=== PATIENT | female | born 2000 | race Caucasian/White ===

== ENCOUNTER 2021-05-30 18:09 | Emergency (ER) | payer OTHER ==
[~2021-05-30] VITALS: Ht 154.9 cm; Wt 70.0 kg
[2021-05-30 19:01] VITALS: BP 126/79
[2021-05-30 19:59] LABS: BASO # 0.1 x10^3/uL (0.0-0.2); BASO % 1 % (0-3); EOS # 0.6 x10^3/uL (0.0-0.7); EOS % 6 % (0-3); HEMATOCRIT 39.5 % (36.0-47.0); HEMOGLOBIN 13.4 g/dL (12.0-15.5); LYMPH # 2.7 x10^3/uL (1.0-4.8); LYMPH % 27 % (24-48); MEAN CORPUSCULAR HEMOGLOBIN 33 pg (25-35); MEAN CORPUSCULAR HGB CONC 34 g/dL (31-37); MEAN CORPUSCULAR VOLUME 96 fL (79-100); MONO # 1.1 x10^3/uL (0.0-1.1); MONO % 10 % (0-9); NEUT # 5.7 x10^3uL (1.8-7.7); NEUT % 56 % (31-73); PLATELET COUNT 212 x10^3/uL (140-400); RED CELL DISTRIBUTION WIDTH 12.1 % (11.5-14.5); WHITE BLOOD COUNT 10.2 x10^3/uL (4.0-11.0)
[2021-05-30 20:06] LABS: BACTERIA,URINE FEW /HPF (0-FEW); BILIRUBIN,URINE NEG (NEG); CLARITY,URINE CLEAR; COLOR,URINE YELLOW; GLUCOSE,URINE NEG (NEG); NITRITE,URINE NEG (NEG); RBC,URINE 0 /HPF (0-2); SQUAMOUS EPITHELIAL CELL,UR FEW /LPF
--- NOTE | 2021-05-30 20:46 | PHYS DOC ---
Past History Additional Past Medical Histor: BONE TUMOR (LORENE SYKES) Past Surgical History: Other Additional Past Surgical Histo: TUMOR SX (LORENE SYKES) General Adult EDM: Chief Complaint: ABDOMINAL PAIN IN HPI: HPI: Patient is a 20 year old female who presents with heavy vaginal bleeding yesterday and a positive at-home test. She reports associated 4/10 generalized abdominal pain and lightheadedness. Patient reports a few days ago, she had a positive at home urine test. Yesterday, she reports she had vaginal bleeding that filled more than 1 tampon in 1 hour. She has had no vaginal bleeding since that time. Her last known menstrual period was 05/11/2021. She denies prior pregnancies. Patient denies headache, weakness, NVD, dysuria, hematuria. She has no other complaints at this time. (LORENE SYKES) Review of Systems: Review of Systems: Constitutional: Denies fever or chills Respiratory: Denies cough or shortness of breath Cardiovascular: Denies chest pain or edema GI: Denies abdominal pain, nausea, vomiting, bloody stools or diarrhea : See HPI Musculoskeletal: Denies back pain or joint pain Neurologic: See HPI (LORENE SYKES) Allergies: Allergies: Allergies Coded Allergies Type Severity Reaction Last Updated Verified No Known Drug Allergies 05/30/21 No (LORENE SYKES) Physical Exam: PE: Constitutional: Well developed, well nourished, no acute distress, non-toxic appearance. Eyes: PERRLA, EOMI, conjunctiva normal, no discharge. Cardiovascular: Heart rate regular rhythm, no murmur. Lungs & Thorax: Bilateral breath sounds clear to auscultation. Abdomen: Bowel sounds normal, soft, no tenderness, no masses, no pulsatile masses. Neurologic: Alert and oriented x4, no focal deficits noted. (LORENE SYKES) Current Patient Data: Labs: Laboratory Tests Test 05/30/21 19:00 05/30/21 19:13 05/30/21 19:40 Urine Collection Type Unknown Urine Color Yellow Urine Clarity Clear Urine pH 7.0 Urine Specific [place] 1.025 Urine Protein Neg (NEG-TRACE) Urine Glucose (UA) Neg mg/dL (NEG) Urine Ketones (Stick) Neg mg/dL (NEG) Urine Blood Neg (NEG) Urine Nitrite Neg (NEG) Urine Bilirubin Neg (NEG) Urine Urobilinogen Dipstick 1.0 mg/dL (0.2 mg/dL) Urine Leukocyte Esterase Neg (NEG) Urine RBC 0 /HPF (0-2) Urine WBC 1-4 /HPF (0-4) Urine Squamous Epithelial Cells Few /LPF Urine Bacteria Few /HPF (0-FEW) Urine Mucus Slight /LPF POC Urine HCG, Qualitative hcg negative (Negative) White Blood Count 10.2 x10^3/uL (4.0-11.0) Red Blood Count 4.10 x10^6/uL (3.50-5.40) Hemoglobin 13.4 g/dL (12.0-15.5) Hematocrit 39.5 % (36.0-47.0) Mean Corpuscular Volume 96 fL (79-100) Mean Corpuscular Hemoglobin 33 pg (25-35) Mean Corpuscular Hemoglobin Concent 34 g/dL (31-37) Red Cell Distribution Width 12.1 % (11.5-14.5) Platelet Count 212 x10^3/uL (140-400) Neutrophils (%) (Auto) 56 % (31-73) Lymphocytes (%) (Auto) 27 % (24-48) Monocytes (%) (Auto) 10 % (0-9) H Eosinophils (%) (Auto) 6 % (0-3) H Basophils (%) (Auto) 1 % (0-3) Neutrophils # (Auto) 5.7 x10^3uL (1.8-7.7) Lymphocytes # (Auto) 2.7 x10^3/uL (1.0-4.8) Monocytes # (Auto) 1.1 x10^3/uL (0.0-1.1) Eosinophils # (Auto) 0.6 x10^3/uL (0.0-0.7) Basophils # (Auto) 0.1 x10^3/uL (0.0-0.2) Maternal Serum HCG Beta Subunit 2 mIU/mL (0-6) Vital Signs: Vital Signs Date Time Temp Pulse Resp B/P (MAP) Pulse Ox O2 Delivery O2 Flow Rate FiO2 05/30/21 19:01 97.5 87 18 126/79 (95) 100 Room Air (LORENE SYKES) Heart Score: C/O Chest Pain: No (LORENE SYKES) Course & Med Decision Making: Course & Med Decision Making Pertinent Labs and Imaging studies reviewed. (See chart for details) Urine test negative. Patient does request serum beta hCG as a confirmation, as if she were , it may be too early to tell in urine qualitative testing. Work-up also include CBC secondary to patient's reported vaginal bleeding. Patient blood work unremarkable. Serum beta hCG negative. Patient discharged to home with strict return precautions for recurrence of vaginal bleeding and any new symptoms. Patient understands and is agreeable to discharge plan. (LORENE SYKES) Dragon Disclaimer: Dragon Disclaimer: This electronic medical record was generated, in whole or in part, using a voice recognition dictation system. (LORENE SYKES) Departure Departure: Impression: Primary Impression: Nonmenstrual vaginal bleeding Disposition: HOME / SELF CARE / HOMELESS Condition: STABLE Referrals: PCP,NO (PCP) Patient Instructions: Health Maintenance, Females Attending Signature Attending Signature I have reviewed the PA/FOREST TECHNOLOGY PROFESSOR's note and plan of care. I was available for consultation as needed during the patient's visit in the emergency department. I agree with the clinical impression, plan, and disposition. (SHANIKA CADE DO) LORENE SYKES May 30, 2021 20:46 SHANIKA CADE DO May 30, 2021 22:14
== END 2021-05-30 20:50 | disposition home or self-care (01) ==
LOC: ER 18:09
DX: N93.8 Other specified abnormal uterine and vaginal bleeding (principal); R10.84 Generalized abdominal pain; R42 Dizziness and giddiness
CPT/HCPCS: 36415; 81001; 81025; 84702; 85025; 99283

== ENCOUNTER 2021-06-26 01:54 | Emergency (ER) | payer OTHER ==
[~2021-06-26] VITALS: Ht 154.9 cm; Wt 70.0 kg
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
[2021-06-26 02:54] LABS: BARBITURATES NEG (NEG); BENZODIAZEPINES NEG (NEG); CANNABINOIDS NEG (NEG); COCAINE NEG (NEG); METHADONE NEG (NEG); OPIATES NEG (NEG); PHENCYCLIDINE NEG (NEG)
[2021-06-26] MEDS ORDERED: MVI, ADULT NO.4 WITH VIT K 10 ML, THIAMINE INJ 100 MG in IV RINGERS SOLUTION,LACTATED 1... IV ONE (03:00)
[2021-06-26] MEDS ORDERED: IV RINGERS SOLUTION,LACTATED 1,000 ML IV SCH (03:00)
[2021-06-26 03:04] LABS: AMPHETAMINE/METHAMPHETAMINE NEG (NEG)
[2021-06-26 03:06] LABS: BILIRUBIN,URINE NEG (NEG); CLARITY,URINE CLEAR; COLOR,URINE YELLOW; GLUCOSE,URINE NEG (NEG)
[2021-06-26 03:07] LABS: BACTERIA,URINE FEW /HPF (0-FEW); NITRITE,URINE NEG (NEG); RBC,URINE 0 /HPF (0-2); SQUAMOUS EPITHELIAL CELL,UR FEW /LPF; UROBILINOGEN,URINE 0.2 mg/dL (0.2 mg/dL)
[2021-06-26 03:22] LABS: BASO # 0.1 x10^3/uL (0.0-0.2); BASO % 1 % (0-3); EOS # 0.3 x10^3/uL (0.0-0.7); EOS % 3 % (0-3); HEMATOCRIT 42.8 % (36.0-47.0); HEMOGLOBIN 14.7 g/dL (12.0-15.5); LYMPH # 2.6 x10^3/uL (1.0-4.8); LYMPH % 26 % (24-48); MEAN CORPUSCULAR HEMOGLOBIN 33 pg (25-35); MEAN CORPUSCULAR HGB CONC 34 g/dL (31-37); MEAN CORPUSCULAR VOLUME 95 fL (79-100); MONO # 0.9 x10^3/uL (0.0-1.1); MONO % 9 % (0-9); NEUT # 6.1 x10^3uL (1.8-7.7); NEUT % 62 % (31-73); PLATELET COUNT 225 x10^3/uL (140-400); RED CELL DISTRIBUTION WIDTH 12.1 % (11.5-14.5); WHITE BLOOD COUNT 9.9 x10^3/uL (4.0-11.0)
--- NOTE | 2021-06-26 03:36 | EKG ---
[address] [address] Test Date: 2021-06-26 Test Time: 03:10:39 Pat Name: DEISY CAR Department: Room: Gender: F Rock Crusher: : 2000 Requested By: YOLI HERNÁNDEZ Order Number: [id number] Reading MD: Measurements Intervals [place] Rate: 94 P: 50 [place]: 154 QRS: 41 QRSD: 96 T: 29 QT: 330 QTc: 418 Interpretive Statements SINUS RHYTHM NORMAL ECG RI6.02 No previous ECG available for comparison
[2021-06-26 04:18] LABS: CALCIUM 8.1 mg/dL (8.5-10.1); CREATININE 0.8 mg/dL (0.6-1.0); GFR 90.5; MAGNESIUM 2.6 mg/dL (1.8-2.4); POTASSIUM 4.2 mmol/L (3.5-5.1)
--- NOTE | 2021-06-26 06:12 | RAD ---
EXAM: 1. Left femur 2 views. 2. Left knee 4 views. HISTORY: Fall, pain. COMPARISON: None. FINDINGS: No fractures are identified. The joint spaces and alignment of the hip and knee are maintai fabián. There is no joint effusion at the knee. A well-defined lucent lesion within the lateral, posterior aspect of the distal femoral metaphysis is likely a benign tug lesion and measures 19 x 9 mm. IMPRESSION: 1. No fracture. 2. Findings consistent with a benign tug lesion along the posterior, lateral aspect of the distal fem oral metaphysis. Correlate for associated symptoms. Electronically signed by: Saskia Jean-Baptiste MD (06/26/2021 6:10 AM) [id number]
[2021-06-26 09:40] VITALS: BP 108/48
== END 2021-06-26 09:49 | disposition home or self-care (01) ==
LOC: ER 01:54
DX: S80.02XA Contusion of left knee, initial encounter (principal); F10.129 Alcohol abuse with intoxication, unspecified; Y90.8 Blood alcohol level of 240 mg/100 ml or more; W18.39XA Other fall on same level, initial encounter; Y93.89 Activity, other specified; Y92.89 Other specified places as the place of occurrence of the external cause; Y99.8 Other external cause status
CPT/HCPCS: 36415; 73552; 73564; 80048; 80307; 81001; 81025; 83735; 84702; 85025; 87491; 87591; 93005; 96361; 96365; 99285; G0480; J7120

== ENCOUNTER 2021-08-21 18:56 | Emergency (ER) | payer OTHER ==
[~2021-08-21] VITALS: Ht 152.4 cm; Wt 69.5 kg
[2021-08-21 19:05] VITALS: BP 118/78
[2021-08-21] MEDS ORDERED: HYDR-2155 PO (19:20)
[2021-08-21] MEDS ORDERED: AMOX1TAB11 PO (19:20)
--- NOTE | 2021-08-21 19:27 | PHYS DOC ---
Past History Additional Past Medical Histor: BONE TUMOR (JODIE FALL APRN) Past Surgical History: Other Additional Past Surgical Histo: L HIP (JODIE FALL APRN) Alcohol Use: Occasionally (JODIE FALL APRN) General Adult EDM: Chief Complaint: DENTAL PROBLEM HPI: HPI: Patient is a 20-year-old female who presents to the emergency department for swelling to her left lower gums at her third molar site that started 2 hours ago. Patient is also reporting pain to the area that she rates 4 out of 10. No treatment prior to arrival. Patient does have a dentist to follow-up with. Patient denies any fever, difficulty swallowing, nausea, vomiting, facial swelling. (JODIE FALL APRN) Review of Systems: Review of Systems: Constitutional: See HPI HENT: See HPI Respiratory: See HPI GI: See HPI (JODIE FALL APRN) Allergies: Allergies: Allergies Coded Allergies Type Severity Reaction Last Updated Verified No Known Drug Allergies 06/26/21 No (JODIE FALL APRN) Physical Exam: PE: Constitutional: Well developed, well nourished, no acute distress, non-toxic appearance. [] HENT: Normocephalic, atraumatic, bilateral external ears normal, small area of swelling on the gumline at site of the third molar, third molar tooth has not erupted, no erythema noted to gums, no area of fluctuance palpated Dizziness, no phonation changes, no tonsillar enlargement, patient maintaining secretions, oropharynx moist, no oral exudates, nose normal. [] Eyes: PERRL, EOMI, conjunctiva normal, no discharge. [] Neck: Normal range of motion, no tenderness, no submandibular swelling noted, no submandibular discoloration, supple, no stridor. [] Cardiovascular: Normal peripheral perfusion Lungs & Thorax: Normal work of breathing, no tachypnea Abdomen: Soft and flat Skin: Warm, dry, no erythema, no rash. [] Back: Normal range of motion Extremities: No tenderness, no cyanosis, no clubbing, ROM intact, no edema. [] Neurologic: Alert and oriented X 3, normal motor function, normal sensory function, no focal deficits noted. [] Psychologic: Affect normal, judgement normal, mood normal. [] (JODIE FALL APRN) EKG: EKG: [] (JODIE FALL APRN) Radiology/Procedures: Radiology/Procedures: [] (JODIE FALL APRN) Heart Score: C/O Chest Pain: N/A Risk Factors: Risk Factors: DM, Current or recent (<one month) smoker, HTN, HLP, family history of CAD, obesity. Risk Scores: Score 0 - 3: 2.5% MACE over next 6 weeks - Discharge Home Score 4 - 6: 20.3% MACE over next 6 weeks - Admit for Clinical Observation Score 7 - 10: 72.7% MACE over next 6 weeks - Early Invasive Strategies (JODIE FALL APRN) Course & Med Decision Making: Course & Med Decision Making Pertinent Labs and Imaging studies reviewed. (See chart for details) Patient presents to the emergency department for swelling to left lower gumline at the site of her third molar, third molar tooth has not erupted. Patient will be treated for gingival abscess with an antibiotic and she will also be discharged home with pain medication. Patient's vital signs are stable and she is in no acute distress. Advised to follow-up with a dentist. I discussed with patient all findings and diagnostic testing as well as the need to follow-up with PCP for further evaluation and treatment or return to the ER if any new or worsening symptoms. Strict return precautions were also discussed at length. Patient voiced understanding and agreement with the plan. Patient is hemodynamically stable at the time of disposition. (JODIE FALL APRN) Dragon Disclaimer: Dragon Disclaimer: This electronic medical record was generated, in whole or in part, using a voice recognition dictation system. (JODIE FALL APRN) Departure Departure: Impression: Primary Impression: Dental abscess Disposition: 01 HOME / SELF CARE / HOMELESS Condition: GOOD Referrals: SALVADOR PAREDES DO (PCP) Patient Instructions: Dental Abscess Additional Instructions: You are seen in the emergency department today for swelling and pain to your gums. It is possible you are experiencing a dental abscess or gingival abscess this will be treated with an antibiotic. Please start and finish the antibiotic completely. Take ibuprofen or naproxen for mild pain. For severe pain you are being discharged home with a medication called [place] which is hydrocodone and Tylenol combination tablet. Do not take any additional Tylenol with this medication. This medication may cause sedation so do not take when you need to be alert, driving a vehicle or with alcohol. Please follow-up with a dentist immediately. I would advise you to contact them tomorrow to set up a follow-up appointment. Return to the emergency department if you develop high fevers refractory to treatment, difficulty swallowing or secretions, intractable nausea or vomiting, voice changes, facial swelling or any new or worsening concerns. Scripts Hydrocodone Bit/Acetaminophen (HYDROCODONE-APAP 5-325 ) 1 Each Tablet 1 TAB PO PRN Q6HRS PRN for PAIN for 2 Days, #8 TAB 0 Refills Prov: JODIE FALL APRN 08/21/21 Amoxicillin/Potassium Clav (AMOX TR-K CLV 875-125 MG TAB) 1 Each Tablet 1 TAB PO BID for dental abscess for 10 Days, #20 TAB 0 Refills Prov: JODIE FALL APRN 08/21/21 Attending Signature Attending Signature I have participated in the care of this patient and I have reviewed and agree with all pertinent clinical information above including history, exam, and recommendations. (YOLI HERNÁNDEZ MD) Dragon Disclaimer This chart was dictated in whole or in part using Voice Recognition software in a busy, high-work load, and often noisy Emergency Department environment. It may contain unintended and wholly unrecognized errors or omissions. (YOLI HERNÁNDEZ MD) JODIE FALL APRN Aug 21, 2021 19:26 YOLI HERNÁNDEZ MD Aug 22, 2021 20:02
[2021-08-21] MEDS ORDERED: HYDROcodone/APAP 5/325MG 1 TAB TABLET PO ONE (19:30)
[2021-08-21] MEDS ORDERED: AMOXICILLIN/K CLAV 875/125MG TABLET. PO ONE (19:30)
== END 2021-08-21 19:48 | disposition home or self-care (01) ==
LOC: ER 18:56
DX: K04.7 Periapical abscess without sinus (principal)
CPT/HCPCS: 99283

== ENCOUNTER 2021-10-12 03:46 | Emergency (ER) | payer OTHER ==
[~2021-10-12 03:46] MED LIST: AMOX1TAB11 PO; HYDR-2155 PO
[2021-10-12] MEDS ORDERED: ACETAMINOPHEN 500 MG TABLET PO ONE (04:22)
[2021-10-12] MEDS ORDERED: IBUPROFEN 800 MG TABLET. PO ONE (04:22)
[2021-10-12] MEDS ORDERED: diphenhydrAMINE HCL 25 MG CAPSULE PO ONE (04:22)
[2021-10-13] MEDS ORDERED: CEFD300C PO (21:19)
[2021-10-13] MEDS ORDERED: ONDA4TAB12 PO (21:20)
== END 2021-10-12 04:35 | disposition home or self-care (01) ==
LOC: ER 03:46
DX: B34.9 Viral infection, unspecified (principal)
CPT/HCPCS: 99281; 99284

== ENCOUNTER 2021-10-13 19:47 | Emergency (ER) | payer OTHER ==
[~2021-10-13] VITALS: Ht 154.9 cm; Wt 60.4 kg
--- NOTE | 2021-10-13 20:07 | PHYS DOC ---
Past History Additional Past Medical Histor: BONE TUMOR Past Surgical History: Tonsillectomy Additional Past Surgical Histo: left hip; addenoidectomy Alcohol Use: None General Adult EDM: Chief Complaint: FEVER HPI: HPI: Patient is a 20-year-old female who presents to the emergency department for multiple complaints. She is reporting generalized body aches, fatigue, nausea and fevers. Patient reports that her temperature at home was 102.6 degrees. She reports that she was seen in this emergency department yesterday and was told she has a viral illness reports her symptoms are not improving. Patient denies vomiting, diarrhea, coughing, shortness of breath, sick exposures, urinary symptoms, recent travel. She states that she is able to tolerate oral intake. Review of Systems: Review of Systems: Constitutional: see HPI Respiratory: see HPI GI: see HPI :see HPI Musculoskeletal:see HPI Current Medications: Current Meds: Current Medications Medications (Trade) Dose Ordered Sig/Beau Start Time Stop Time Status Last Admin Dose Admin Acetaminophen (Tylenol) 1,000 mg 1X ONCE 10/13/21 20:15 10/13/21 20:16 UNV Ondansetron HCl (Zofran) 4 mg 1X ONCE 10/13/21 20:15 10/13/21 20:16 UNV Sodium Chloride 1,000 ml @ 1,000 mls/hr 1X ONCE 10/13/21 20:15 10/13/21 21:14 UNV Allergies: Allergies: Allergies Coded Allergies Type Severity Reaction Last Updated Verified No Known Drug Allergies 06/26/21 No Physical Exam: PE: Constitutional: Well developed, well nourished, no acute distress, non-toxic appearance. [] HENT: Normocephalic, atraumatic, bilateral external ears normal, oropharynx moist, no oral exudates, nose normal. [] Eyes: PERRL, EOMI, conjunctiva normal, no discharge. [] Neck: Normal range of motion, no tenderness, supple, no stridor. [] Cardiovascular:Heart rate regular rhythm, no murmur [] Lungs & Thorax: Bilateral breath sounds clear to auscultation [] Abdomen: Bowel sounds normal, soft, generalized abdominal tenderness with palpation, no guarding, no rigidity, no masses, no pulsatile masses. [] Skin: Warm, dry, no erythema, no rash. [] Back: No tenderness,normal rom, bilateral CVAT Extremities: No tenderness, no cyanosis, no clubbing, ROM intact, no edema. [] Neurologic: Alert and oriented X 3, normal motor function, normal sensory function, no focal deficits noted. [] Psychologic: Affect normal, judgement normal, mood normal. [] Current Patient Data: Labs: Laboratory Tests Test 10/13/21 19:36 10/13/21 20:10 Bedside Urine HCG, Qualitative hcg negative White Blood Count 13.0 x10^3/uL Red Blood Count 4.38 x10^6/uL Hemoglobin 13.8 g/dL Hematocrit 41.0 % Mean Corpuscular Volume 94 fL Mean Corpuscular Hemoglobin 32 pg Mean Corpuscular Hemoglobin Concent 34 g/dL Red Cell Distribution Width 12.0 % Platelet Count 176 x10^3/uL Neutrophils (%) (Auto) 75 % Lymphocytes (%) (Auto) 10 % Monocytes (%) (Auto) 14 % Eosinophils (%) (Auto) 0 % Basophils (%) (Auto) 1 % Neutrophils # (Auto) 9.7 x10^3uL Lymphocytes # (Auto) 1.3 x10^3/uL Monocytes # (Auto) 1.8 x10^3/uL Eosinophils # (Auto) 0.0 x10^3/uL Basophils # (Auto) 0.1 x10^3/uL Urine Collection Type Clean catch Urine Color Yellow Urine Clarity Clear Urine pH 6.0 Urine Specific [place] 1.025 Urine Protein 30 mg/dl Urine Glucose (UA) Neg mg/dL Urine Ketones (Stick) >=160 mg/dL Urine Blood Mod Urine Nitrite Pos Urine Bilirubin Neg Urine Urobilinogen Dipstick 1.0 mg/dL Urine Leukocyte Esterase Neg Urine RBC 3-5 /HPF Urine WBC 11-20 /HPF Urine Squamous Epithelial Cells Few /LPF Urine Bacteria Mod /HPF Urine Mucus Mod /LPF Sodium Level 134 mmol/L Potassium Level 3.6 mmol/L Chloride Level 98 mmol/L Carbon Dioxide Level 27 mmol/L Anion Gap 9 Blood Urea Nitrogen 8 mg/dL Creatinine 0.9 mg/dL Estimated GFR (Cockcroft-Gault) 79.0 BUN/Creatinine Ratio 9 Glucose Level 96 mg/dL Calcium Level 8.7 mg/dL Total Bilirubin 0.4 mg/dL Aspartate Amino Transf (AST/SGOT) 14 U/L Alanine Aminotransferase (ALT/SGPT) 23 U/L Alkaline Phosphatase 65 U/L Total Protein 7.3 g/dL Albumin 3.2 g/dL Albumin/Globulin Ratio 0.8 Lipase 46 U/L Influenza Type A (Rapid) Negative Influenza Type B (Rapid) Negative SARS-CoV-2 Antigen (Rapid) Negative Current Medications Medications (Trade) Dose Ordered Sig/Beau Route PRN Reason Start Time Stop Time Status Last Admin Dose Admin Sodium Chloride 1,000 ml @ 1,000 mls/hr 1X ONCE IV 10/13/21 20:15 10/13/21 21:14 10/13/21 20:15 Ondansetron HCl (Zofran) 4 mg 1X ONCE IVP 10/13/21 20:15 10/13/21 20:16 DC 10/13/21 20:15 Acetaminophen (Tylenol) 1,000 mg 1X ONCE PO 10/13/21 20:15 10/13/21 20:16 DC 10/13/21 20:15 Vital Signs: Vital Signs Date Time Temp Pulse Resp B/P (MAP) Pulse Ox O2 Delivery O2 Flow Rate FiO2 10/13/21 19:58 100.7 129 20 98 Room Air EKG: EKG: [] Radiology/Procedures: Radiology/Procedures: []PROCEDURE: PORTABLE CHEST 1V Exam: Chest one view INDICATION: Fever, body aches TECHNIQUE: Frontal view of the chest Comparisons: None FINDINGS: The cardiomediastinal silhouette and pulmonary vessels are within normal limits. The lung and pleural spaces are clear. IMPRESSION: No acute cardiopulmonary process. Electronically signed by: Rayne Wade MD (10/13/2021 8:44 PM) [facility] DICTATED AND SIGNED BY: RAYNE WADE MD DATE: 10/13/212042 CC: JODIE FALL APRN; SALVADOR PAREDES DO ~ Heart Score: C/O Chest Pain: N/A Risk Factors: Risk Factors: DM, Current or recent (<one month) smoker, HTN, HLP, family history of CAD, obesity. Risk Scores: Score 0 - 3: 2.5% MACE over next 6 weeks - Discharge Home Score 4 - 6: 20.3% MACE over next 6 weeks - Admit for Clinical Observation Score 7 - 10: 72.7% MACE over next 6 weeks - Early Invasive Strategies Course & Med Decision Making: Course & Med Decision Making Pertinent Labs and Imaging studies reviewed. (See chart for details) Patient presents to the ER for generalized body aches, fatigue, nausea and fever. Work up in ER consists of blood work including lipase, urinalysis and Covid testing. Patient was mildly tachycardic and did have a low-grade fever and she was treated with IV fluids, nausea medication and Tylenol. Following treatment in the emergency department, patient's heart rate has improved to 101 bpm and her fever has gone down to 100.1 checked 20 minutes after tylenol dose. Patient is noted to have leukocytosis with a white blood cell count of 13, unremarkable CMP and nitrate positive urinary tract infection. Negative influenza and Covid testing. Chest x-ray showed no acute findings. Due to patient's CVA tenderness, fevers and nausea and patient will be treated for pyelonephritis. She was given her first dose in the ER today. Patient will also be discharged home with nausea medication she is advised to take Tylenol and ibuprofen at home for her fevers. Patient is able to tolerate oral intake and is not actively vomiting. I discussed with patient all findings and diagnostic testing as well as the need to follow-up with PCP for further evaluation and treatment or return to the ER if any new or worsening symptoms. Strict return precautions were also discussed at length. Patient voiced understanding and agreement with the plan. Patient is hemodynamically stable at the time of disposition. Maria C Disclaimer: Maria C Disclaimer: This electronic medical record was generated, in whole or in part, using a voice recognition dictation system. Departure Departure: Impression: Primary Impression: Pyelonephritis Disposition: HOME / SELF CARE / HOMELESS Condition: GOOD Referrals: SALVADOR PAREDES DO (PCP) Patient Instructions: Pyelonephritis, Adult Additional Instructions: You are seen in the emergency department for body aches, nausea and fever. You are noted to have a kidney infection which will be treated with an antibiotic. Please start and finish the antibiotic completely. Take Tylenol and ibuprofen for any pain and fevers at home. You are being discharged home with nausea medication that you can use as needed. Increase your fluids. Avoid bladder irritants like caffeine, sugary beverages or alcohol. Follow-up with your primary care provider on Saturday. Return to the emergency department if you develop high fevers refractory to treatment, intractable nausea or vomiting, lethargy, abdominal pain. Scripts Ondansetron (ONDANSETRON ODT) 4 Mg Tab.rapdis 1 TAB PO PRN Q6-8HRS for nausea for 7 Days, #28 TAB 0 Refills Prov: OJDIE FALL APRN 10/13/21 Cefdinir (CEFDINIR) 300 Mg Capsule 1 CAP PO BID for pyelonephritis for 10 Days, #20 CAP 0 Refills Prov: JODIE FALL APRN 10/13/21 JODIE FALL APRN Oct 13, 2021 20:07
[2021-10-13] MEDS ORDERED: IV NORMAL SALINE 1,000ML 1,000 ML IV ONE (20:15)
[2021-10-13] MEDS ORDERED: ACETAMINOPHEN 500 MG TABLET PO ONE (20:15)
[2021-10-13] MEDS ORDERED: ONDANSETRON PF 4 MG/2 ML VIAL. IVP ONE (20:15)
[2021-10-13 20:44] LABS: BASO # 0.1 x10^3/uL (0.0-0.2); BASO % 1 % (0-3); EOS % 0 % (0-3); HEMOGLOBIN 13.8 g/dL (12.0-15.5); LYMPH # 1.3 x10^3/uL (1.0-4.8); LYMPH % 10 % (24-48); MEAN CORPUSCULAR HEMOGLOBIN 32 pg (25-35); MEAN CORPUSCULAR HGB CONC 34 g/dL (31-37); MEAN CORPUSCULAR VOLUME 94 fL (79-100); MONO # 1.8 x10^3/uL (0.0-1.1); MONO % 14 % (0-9); NEUT # 9.7 x10^3uL (1.8-7.7); NEUT % 75 % (31-73); PLATELET COUNT 176 x10^3/uL (140-400); RED BLOOD COUNT 4.38 x10^6/uL (3.50-5.40)
--- NOTE | 2021-10-13 20:46 | RAD ---
Exam: Chest one view INDICATION: Fever, body aches TECHNIQUE: Frontal view of the chest Comparisons: None FINDINGS: The cardiomediastinal silhouette and pulmonary vessels are within normal limits. The lung and pleural spaces are clear. IMPRESSION: No acute cardiopulmonary process. Electronically signed by: Rayne Anderson MD (10/13/2021 8:44 PM) [facility]
[2021-10-13 20:52] LABS: CALCIUM 8.7 mg/dL (8.5-10.1); CREATININE 0.9 mg/dL (0.6-1.0); POTASSIUM 3.6 mmol/L (3.5-5.1)
[2021-10-13 20:57] LABS: ALBUMIN 3.2 g/dL (3.4-5.0); ALBUMIN/GLOBULIN RATIO 0.8 (1.0-1.7); TOTAL BILIRUBIN 0.4 mg/dL (0.2-1.0); TOTAL PROTEIN 7.3 g/dL (6.4-8.2)
[2021-10-13 21:01] LABS: CLARITY,URINE CLEAR; COLOR,URINE YELLOW; GLUCOSE,URINE NEG (NEG)
[2021-10-13 21:02] LABS: BACTERIA,URINE MOD /HPF (0-FEW); NITRITE,URINE POS (NEG); SQUAMOUS EPITHELIAL CELL,UR FEW /LPF
[2021-10-13 21:08] LABS: INFLUENZA A PATIENT NEGATIVE (NEGATIVE); INFLUENZA B PATIENT NEGATIVE (NEGATIVE)
[2021-10-13] MEDS ORDERED: CEFD300C PO (21:19)
[2021-10-13] MEDS ORDERED: ONDA4TAB12 PO (21:20)
[2021-10-13] MEDS ORDERED: CEFDINIR 300 MG CAPSULE PO ONE (22:00)
== END 2021-10-13 21:36 | disposition home or self-care (01) ==
LOC: ER 19:47
DX: N12 Tubulo-interstitial nephritis, not specified as acute or chronic (principal); Z20.822 Contact with and (suspected) exposure to COVID-19
CPT/HCPCS: 36415; 71045; 80053; 81001; 81025; 83690; 85025; 87077; 87086; 87186; 87428; 96361; 96374; 99284; J2405; J7030